=== PATIENT | male | born 1960 | race Hispanic/Latino ===

== ENCOUNTER → 2020-11-10 | Outpatient (CLI) | payer BC | END | disposition home or self-care (01) | LOC: RAH 14:43 | PROVIDERS: ATTEND Anesthesiology Pain Medicine | DX: M54.5 Low back pain (principal) | CPT/HCPCS: 72114; 72220 ==

== ENCOUNTER 2021-12-24 06:36 | Day surgery (SDC) | payer BC ==
[2021-12-23 14:17] LABS: BASOPHILS % (AUTO) 0.2 % (0.0-5.0); EOSINOPHILS % (AUTO) 1.8 % (0.0-8.0); HEMATOCRIT 52.2 % (42-54); LYMPHOCYTES % (AUTO) 18.9 % (21.0-51.0); MEAN CORPUSCULAR HEMOGLOBIN 28.6 pg (27.0-33.0); MEAN CORPUSCULAR HGB CONC 31.8 g/dL (32.0-36.0); MONOCYTES % (AUTO) 5.4 % (3.0-13.0); NEUTROPHILS % (AUTO) 73.3 % (40.0-77.0); PLATELET COUNT (AUTO) 196 K/uL (130-400); RED CELL DISTRIBUTION WIDTH 14.8 % (11.0-15.5); WHITE BLOOD COUNT (AUTO) 9.3 K/uL (4.8-10.8)
[2021-12-23 14:18] LABS: APPEARANCE,URINE Clear (CLEAR); BILIRUBIN,URINE Negative (NEGATIVE); COLOR,URINE Yellow (YELLOW); GLUCOSE, URINE (UA) Negative (NEGATIVE); KETONES,URINE Trace mg/dL (NEGATIVE); LEUKOCYTE ESTERASE ,URINE Negative (NEGATIVE); NITRATE,URINE Negative (NEGATIVE); OCCULT BLOOD,URINE Negative (NEGATIVE); PROTEIN,URINE POS 1+ mg/dL (NEGATIVE)
[2021-12-23 14:28] LABS: CREATININE 1.2 mg/dL (0.5-1.5)
[2021-12-23 14:31] LABS: BACTERIA,URINE Few /HPF (None Seen); MUCUS,URINE Few LPF (None Seen); RBC,URINE 0-1 /HPF (0-1); SQUAMOUS EPITHELIAL CELL,UR Rare /HPF (0-2); WBC,URINE 0-1 /HPF (0-1)
[2021-12-23 14:33] VITALS: BP 145/87
[2021-12-23 14:36] LABS: INR 1.07 (0.85-1.15); PROTHROMBIN TIME 11.6 SEC (9.6-11.6)
[2021-12-23 14:38] LABS: PARTIAL THROMBOPLASTIN TIME 29.2 SEC (26.3-35.5)
[2021-12-23 14:39] LABS: B-TYPE NATRIURETIC PEPTIDE < 5 pg/mL (0-100)
[~2021-12-24] VITALS: Ht 175.3 cm; Wt 91.4 kg
[2021-12-24] VITALS (9 sets, daily range): BP systolic 96–132; BP diastolic 61–81
[~2021-12-24 06:36] MED LIST: GABA300C PO; HYDR-4068 PO; PARO40TA72 PO; ROSU5TAB PO
[2021-12-24] MEDS ORDERED: 0.9%NACL 1000ML 1,000 ML IV ONE (07:32)
[2021-12-24] MEDS ORDERED: IOHEXOL 350 MG/ML 100ML INFUS..BTL IV ONE (07:43)
[2021-12-24] MEDS ORDERED: IOHEXOL-350 50ML VIAL IV ONE (07:43)
[2021-12-24] MEDS ORDERED: NITROGLYCERIN 50MG VIAL ONE (07:43)
[2021-12-24] MEDS ORDERED: DOCU-116 PO (07:44)
[2021-12-24] MEDS ORDERED: LIDOCAINE HCL 400MG/20ML VIAL ONE (07:44)
[2021-12-24] MEDS ORDERED: FENTANYL CITRATE PF 50 MCG/1 ML 2ML VIAL ONE (07:44)
[2021-12-24] MEDS ORDERED: MIDAZOLAM HCL 1 MG/ML 2ML VIAL ONE (07:44)
[2021-12-24] MEDS ORDERED: LORA0.5T83 PO (07:44)
[2021-12-24] MEDS ORDERED: METO-408 PO (07:44)
[2021-12-24] MEDS ORDERED: LOSA1TAB37 PO (07:44)
[2021-12-24] MEDS ORDERED: TRAM50TA4 PO (07:44)
[2021-12-24] MEDS: 0.9%NACL 1000ML 1,000 ML IV SCH ×2 (08:45→12:53)
[2021-12-24 10:32] LABS: CHOLESTEROL 120 mg/dL (<200); HDL CHOLESTEROL 37 mg/dL (29-71); LDL DIRECT 67 mg/dL (0-99); TRIGLYCERIDES 127 mg/dL (30-200)
== END 2021-12-24 13:11 | disposition home or self-care (01) ==
LOC: DAH 06:36
PROVIDERS: ATTEND Internal Medicine Cardiovascular Disease
DX: I25.119 Atherosclerotic heart disease of native coronary artery with unspecified angina pectoris (principal); I24.8 Other forms of acute ischemic heart disease; I11.9 Hypertensive heart disease without heart failure; E78.5 Hyperlipidemia, unspecified; M50.10 Cervical disc disorder with radiculopathy, unspecified cervical region; Z98.890 Other specified postprocedural states; Z79.01 Long term (current) use of anticoagulants; Z79.899 Other long term (current) drug therapy
CPT/HCPCS: 36415 ×2; 71045; 80048; 80061; 81001; 82948; 83880; 85025; 85610; 85730; 93005; 93458; A4215; A4216; A4221; A4222; A4223 ×3; A4606; A4663; C1760; C1894 ×2; J1644; J2250; J3010; J3490 ×2; J7030 ×2; Q9965 ×2; Q9967 ×2; 99156; 99157

== ENCOUNTER 2022-08-16 06:07 | Observation (INO) | payer BC ==
[2022-08-10 10:57] LABS: PROTHROMBIN TIME 10.9 SEC (9.6-11.6)
[2022-08-10 10:58] LABS: CREATININE 1.3 mg/dL (0.5-1.5); PARTIAL THROMBOPLASTIN TIME 29.6 SEC (26.3-35.5); POTASSIUM 4.7 mmol/L (3.5-5.1)
[2022-08-10 11:01] LABS: BASOPHILS % (AUTO) 0.3 % (0.0-5.0); EOSINOPHILS % (AUTO) 2.3 % (0.0-8.0); HEMATOCRIT 48.2 % (42-54); LYMPHOCYTES % (AUTO) 33.5 % (21.0-51.0); MEAN CORPUSCULAR HEMOGLOBIN 31.5 pg (27.0-33.0); MEAN CORPUSCULAR HGB CONC 33.8 g/dL (32.0-36.0); MEAN CORPUSCULAR VOLUME 93.2 fL (79-99); MONOCYTES % (AUTO) 9.2 % (3.0-13.0); NEUTROPHILS % (AUTO) 54.1 % (40.0-77.0); PLATELET COUNT (AUTO) 141 K/uL (130-400); RED BLOOD CELL COUNT(AUTO) 5.17 MIL/uL (4.50-6.20); RED CELL DISTRIBUTION WIDTH 12.8 % (11.0-15.5); WHITE BLOOD COUNT (AUTO) 6.9 K/uL (4.8-10.8)
[2022-08-15 11:52] VITALS: BP 138/88
[2022-08-16] VITALS (26 sets, daily range): BP systolic 97–147; BP diastolic 61–90
[~2022-08-16] VITALS: Ht 172.7 cm; Wt 100.6 kg
[2022-08-16] MEDS: CEFAZOLIN SODIUM 1 GM VIAL IVPB SCH ×3 (05:00→18:19)
[~2022-08-16 06:07] MED LIST changes: +AEC81 PO; -HYDR-4068 PO; +LOSA25TA41 PO; +METO-408 PO; +MULT-1289 PO; +ROPIVACAINE 0.5% 5MG/ML 30ML IJ ONE; +TRAM50TA4 PO; +TRANEXAMIC ACID 1000MG/10ML ONE
[2022-08-16] MEDS ORDERED: ESMOLOL HCL 10 MG/ML 10 ML VIAL ONE (06:52)
[2022-08-16] MEDS ORDERED: 0.9%NACL 1000ML 1,000 ML IV ONE (06:54)
[2022-08-16] MEDS: CEFAZOLIN SODIUM 2 GM VIAL ONE ×2 (06:54→07:20)
[2022-08-16] MEDS ORDERED: TRANEXAMIC ACID 1000MG/10ML ONE (07:39)
[2022-08-16] MEDS ORDERED: PROPOFOL 10 MG/ML 20ML VIAL IV ONE (07:43)
[2022-08-16] MEDS ORDERED: SUCCINYLCHOLINE CHLORIDE 20 MG/ML 10 ML VIAL ONE (07:43)
[2022-08-16] MEDS ORDERED: ROCURONIUM 10MG/1ML SYR 10 MG/ML ML ONE ×2 (07:44→08:40)
[2022-08-16] MEDS ORDERED: MIDAZOLAM HCL 1 MG/ML 2ML VIAL ONE (07:44)
[2022-08-16] MEDS ORDERED: FENTANYL CITRATE PF 50 MCG/1 ML 2ML VIAL ONE ×2 (07:44→10:19)
[2022-08-16] MEDS ORDERED: EPHEDRINE SULFATE 50 MG/ML AMPULE ONE (08:11)
[2022-08-16] MEDS ORDERED: GLYCOPYRROLATE 1 MG/5 ML SYRINGE ONE ×2 (08:34→09:58)
[2022-08-16] MEDS ORDERED: PHENYLEPHRINE HCL 10 MG/ML 1ML VIAL IV ONE (09:56)
[2022-08-16] MEDS ORDERED: NEOSTIGMINE 5MG/5ML SYR IV ONE (09:59)
[2022-08-16] MEDS ORDERED: HYDROCODONE/ACETAMINOPHEN 5/325 MG TAB PO PRN (10:00)
[2022-08-16] MEDS ORDERED: POTASSIUM CHLORIDE 20MEQ/100ML 100 ML IV PRN (10:00)
[2022-08-16] MEDS: 0.9%NACL 1000ML 1,000 ML IV SCH ×3 (10:00→19:57)
[2022-08-16] MEDS ORDERED: GABAPENTIN 300 MG CAPSULE PO PRN (10:00)
[2022-08-16] MEDS ORDERED: KCL 20 MEQ ERTAB PO PRN (10:00)
[2022-08-16] MEDS ORDERED: POTASSIUM CHLORIDE 10% ELIXIR 20 MEQ/15 ML UDCUP PO PRN (10:00)
[2022-08-16] MEDS ORDERED: LIDOCAINE HCL-MPF 1% 2ML VIAL IV PRN (10:00)
[2022-08-16] MEDS ORDERED: ONDANSETRON 4MG INJ IVP PRN (10:00)
[2022-08-16] MEDS ORDERED: ONDANSETRON 4MG INJ ONE (10:19)
[2022-08-16] MEDS ORDERED: ACETAMINOPHEN 1,000 MG/100 ML VIAL IV ONE (10:19)
[2022-08-16] MEDS: ACETAMINOPHEN 1,000 MG/100 ML VIAL IV SCH ×2 (10:45→19:56)
[2022-08-16] MEDS ORDERED: IBUPROFEN 800MG + NS 250ML IV SCH (13:00)
[2022-08-16] MEDS: CEFAZOLIN SODIUM 2 GM VIAL IVP SCH ×2 (14:39→19:55)
[2022-08-16] MEDS: HYDROCODONE/ACETAMINOPHEN 10/325 MG TAB PO PRN (16:07)
[2022-08-16] MEDS: CALDOLOR 800MG+NS 250ML 250 ML IV SCH (17:56)
[2022-08-16] MEDS: METOPROLOL SUCCINATE 25 MG TAB.SR.24H PO SCH (19:54)
[2022-08-16] MEDS: FAMOTIDINE 20MG TAB PO SCH (19:54)
[2022-08-16] MEDS: LOSARTAN 25 MG TABLET PO SCH (19:54)
[2022-08-17] VITALS (7 sets, daily range): BP systolic 98–123; BP diastolic 49–75
[2022-08-17] MEDS: ACETAMINOPHEN 1,000 MG/100 ML VIAL IV SCH (00:58)
[2022-08-17] MEDS: CALDOLOR 800MG+NS 250ML 250 ML IV SCH ×2 (00:58→06:11)
[2022-08-17 05:22] LABS: HEMATOCRIT 36.3 % (42-54); MEAN CORPUSCULAR HGB CONC 33.9 g/dL (32.0-36.0); MEAN CORPUSCULAR VOLUME 94.5 fL (79-99); RED BLOOD CELL COUNT(AUTO) 3.84 MIL/uL (4.50-6.20); RED CELL DISTRIBUTION WIDTH 13.1 % (11.0-15.5); WHITE BLOOD COUNT (AUTO) 14.3 K/uL (4.8-10.8)
[2022-08-17 05:39] LABS: CREATININE 1.2 mg/dL (0.5-1.5); POTASSIUM 3.9 mmol/L (3.5-5.1)
[2022-08-17] MEDS: HYDROCODONE/ACETAMINOPHEN 10/325 MG TAB PO PRN ×4 (06:15→17:56)
[2022-08-17] MEDS: METOPROLOL SUCCINATE 25 MG TAB.SR.24H PO SCH (09:00)
[2022-08-17] MEDS: POLYETHYLENE GLYCOL 3350 17 GM POWD.PACK PO SCH (10:07)
[2022-08-17] MEDS: FAMOTIDINE 20MG TAB PO SCH ×2 (10:07→20:16)
[2022-08-17] MEDS: PAROXETINE HCL 20 MG TABLET PO SCH (10:07)
[2022-08-17] MEDS: ATORVASTATIN 10 MG TABLET PO SCH (10:07)
[2022-08-17] MEDS: ENOXAPARIN SODIUM 30 MG/0.3 ML SQ SCH (10:09)
[2022-08-17] MEDS: CEFAZOLIN SODIUM 1 GM VIAL IVPB SCH (19:21)
[2022-08-17] MEDS: MORPHINE 4 MG SYG IVP PRN (20:10)
[2022-08-18] MEDS: LOSARTAN 25 MG TABLET PO SCH (00:10)
[2022-08-18] MEDS: METOPROLOL SUCCINATE 25 MG TAB.SR.24H PO SCH ×2 (00:10→09:00)
[2022-08-18 04:02] VITALS: BP 122/69
[2022-08-18] MEDS: HYDROCODONE/ACETAMINOPHEN 10/325 MG TAB PO PRN ×2 (05:22→12:56)
[2022-08-18 08:00] VITALS: BP 100/61
[2022-08-18] MEDS: POLYETHYLENE GLYCOL 3350 17 GM POWD.PACK PO SCH (08:31)
[2022-08-18] MEDS: FAMOTIDINE 20MG TAB PO SCH (08:31)
[2022-08-18] MEDS: PAROXETINE HCL 20 MG TABLET PO SCH (08:31)
[2022-08-18] MEDS: ENOXAPARIN SODIUM 30 MG/0.3 ML SQ SCH (08:32)
[2022-08-18] MEDS: MORPHINE 4 MG SYG IVP PRN (08:32)
[2022-08-18] MEDS: ATORVASTATIN 10 MG TABLET PO SCH (08:36)
[2022-08-18 12:00] VITALS: BP 120/72
[2022-08-19] MEDS ORDERED: BISACODYL 10 MG SUPP.RECT RC PRN (10:00)
== END 2022-08-18 15:11 | disposition home or self-care (01) ==
LOC: DAH 06:07 → DAHIP 06:08 → 4AH 11:30
PROVIDERS: ADMIT Orthopaedic Surgery; ATTEND Orthopaedic Surgery
DX: M16.11 Unilateral primary osteoarthritis, right hip (principal); Z20.822 Contact with and (suspected) exposure to COVID-19; M25.551 Pain in right hip; M25.552 Pain in left hip; I10 Essential (primary) hypertension; Z79.82 Long term (current) use of aspirin; Z79.899 Other long term (current) drug therapy; Z98.890 Other specified postprocedural states
CPT/HCPCS: 80048 ×2; 85025; 85610; 85730; 87426; 36415 ×2; 87641; 27130; 96376 ×2; 96365; 96366 ×2; 96375 ×2; 96368; 76942; 64450; 82948 ×2; 73503; 97161; 97039 ×5; 96372 ×2; 85027; 97116 ×4; 97530 ×4; A6260; G0378 ×50; A4606; A4649 ×3; J3010 ×2; J0690 ×3; J3490 ×6; J2710; J0330; J7030 ×2; J2250; J2704; J2405 ×2; J2795; J2370; J1741; A6219; G0168; C1776 ×4; A5120; A4215; A4223; A4222; A4221; A4663; J1650 ×3; J2270 ×2